=== PATIENT | female | born 1980 | race Two or more races ===

== ENCOUNTER 2018-10-28 23:32 | Emergency (ER) | payer OTHER ==
[~2018-10-28] VITALS: Ht 149.9 cm; Wt 66.7 kg
[2018-10-28] MEDS ORDERED: CLONAZEPAM1 M1 (23:48)
[2018-10-28] MEDS ORDERED: LEXAPRO5 MG (23:48)
[2018-10-29] MEDS ORDERED: PEPCID AC20 MG PO (06:30)
[2018-10-29] MEDS ORDERED: ULTRACET PO (06:30)
[2018-10-29] MEDS ORDERED: LEVSIN/SL0.125 MG SL (06:30)
== END 2018-10-29 06:41 ==
LOC: ER 23:32
DX: N20.0 Calculus of kidney (principal); R10.31 Right lower quadrant pain